=== PATIENT | female | born 1985 | race Caucasian/White ===

== ENCOUNTER → 2022-12-30 | Outpatient (REF) | payer BC | LOC: M LAB REF 11:30 | PROVIDERS: ATTEND Physician Assistant Medical | DX: J02.9 Acute pharyngitis, unspecified (principal) ==

== ENCOUNTER → 2023-01-23 | Outpatient (REF) | payer BC ==
[2023-01-23 18:52] LABS: PERCENT SATURATION 24.9 % (13.2-45.0)
[2023-01-23 18:54] LABS: FERRITIN 16.6 NG/ML (7.3-270.7)
== END ==
LOC: M LAB REF 16:50
PROVIDERS: ATTEND Internal Medicine
DX: D64.9 Anemia, unspecified (principal)

== ENCOUNTER → 2023-03-15 | Outpatient (CLI) | payer BC | LOC: M PLAIMG 10:09 | PROVIDERS: ATTEND Internal Medicine | DX: G43.909 Migraine, unspecified, not intractable, without status migrainosus (principal) ==